=== PATIENT | male | born 1940 | race Caucasian/White ===

== ENCOUNTER 2020-08-27 15:43 | Observation (INO) | payer MEDICARE, MEDICAID ==
[~2020-08-27] VITALS: Ht 177.8 cm; Wt 86.6 kg
[~2020-08-27 15:43] MED LIST: ALDACTONE 25MG25 MG PO; ASPIR 8181 MG PO; CORDARONE 200M200 MG PO; COUMADIN3 MG PO; COZAAR50 MG PO; FLOMAX 0.4 MG0.4 MG PO; GLUCOPHAGE 500500 MG PO; IBUPROFEN800 MG PO; ISORDIL TAB 3030 MG PO; K-DUR TAB 10 M10 MEQ PO; LASIX20 MG PO; LEVEMIR FL100 UNIT/1 SQ; LIPITOR TAB 2020 MG PO; MELADOX3 MG PO; TESSALON PERLE100 MG PO; TOPROL XL25 MG PO; VENTOLIN HFA 66.7 GM INH; WARFARIN SODIU7.5 MG PO
[2020-08-27 17:55] LABS: HEMOGLOBIN 12.6 gm/dl (14.0-17.5); RED BLOOD COUNT 4.31 M/UL (4.20-5.50); WHITE BLOOD COUNT 8.8 K/UL (4.5-11.0)
[2020-08-27 18:19] LABS: BUN/CREATININE RATIO 17 (0-10)
[2020-08-28] MEDS ORDERED: METFORMIN HCL1000 MG PO (01:37)
[2020-08-28] MEDS ORDERED: PROTONIX 40 MG40 M1 PO (01:40)
[2020-08-28 06:11] LABS: HEMOGLOBIN 11.8 gm/dl (14.0-17.5); RED BLOOD COUNT 4.12 M/UL (4.20-5.50)
[2020-08-28 06:12] LABS: WHITE BLOOD COUNT 6.4 K/UL (4.5-11.0)
--- NOTE | 2020-08-28 13:15 | NUR ---
PT REPORTED THAT HE CANNOT TAKE INSULIN AND THAT HIS PCP, DR. MCNAIR STOPPED HIS INSULIN ABOUT 2 WEEKS AGO BECAUSE HE BROKE OUT AND DR. MCNAIR EXPLAINED IT WAS SOME TYPE OF ALLERGIC REACTION. PT REFUSED LUNCH TIME INSULIN AND STATED THAT HE TAKES METFORMIN 1000MG BID AT HOME. SPOKE WITH DR. CARTER, AND DR. CARTER EXPLAINED THAT METFORMIN IS NOT GIVEN IN THE HOSPITAL DUE TO THE COMPLICATIONS IT CAN CAUSE. DR. CARTER EXPLAINED THAT THE PT SHOULD MONITOR HIS DIABETES WITH DIET MODIFICATIONS AND REPORT TO DR. CARTER IF THE PT'S SUGAR IS ELEVATED. WILL CONTINUE TO MONITOR THE PT.
[2020-08-29 04:48] LABS: HEMOGLOBIN 12.4 gm/dl (14.0-17.5); RED BLOOD COUNT 4.25 M/UL (4.20-5.50); WHITE BLOOD COUNT 6.5 K/UL (4.5-11.0)
[2020-08-29] MEDS ORDERED: KEFLEX CAP 250250 MG PO (09:56)
== END 2020-08-29 15:52 | disposition home or self-care (01) ==
LOC: ER1 15:43 → M/S 21:42 → CDU 21:42 → M/S 23:45
PROVIDERS: Emergency Medicine; Physician Assistant Medical; ADMIT Internal Medicine
DX: L03.114 Cellulitis of left upper limb (principal); R42 Dizziness and giddiness; R55 Syncope and collapse; I13.0 Hypertensive heart and chronic kidney disease with heart failure and stage 1 through stage 4 chronic kidney disease, or unspecified chronic kidney disease; J44.9 Chronic obstructive pulmonary disease, unspecified; E11.22 Type 2 diabetes mellitus with diabetic chronic kidney disease; M79.662 Pain in left lower leg; E78.5 Hyperlipidemia, unspecified; N18.30 Chronic kidney disease, stage 3 unspecified; I25.10 Atherosclerotic heart disease of native coronary artery without angina pectoris; J60 Coalworker's pneumoconiosis; I25.5 Ischemic cardiomyopathy; Z88.8 Allergy status to other drugs, medicaments and biological substances; I48.20 Chronic atrial fibrillation, unspecified; Z95.810 Presence of automatic (implantable) cardiac defibrillator; Z95.5 Presence of coronary angioplasty implant and graft; Z79.01 Long term (current) use of anticoagulants; Z20.822 Contact with and (suspected) exposure to COVID-19; I08.3 Combined rheumatic disorders of mitral, aortic and tricuspid valves; I27.20 Pulmonary hypertension, unspecified; I50.9 Heart failure, unspecified
CPT/HCPCS: ECHO; 36415; 70450; 71045; 71046; 80048; 80053; 80202; 82550; 82553; 82962; 83605; 83874; 84484; 85025; 85027; 85610; 87040; 93005; 93306; 93926; 93971; 94640; 94664; 94760; 96365; 96375; 96376; 99285; G0378; J0690; J2543; J3370; J7030; J7070; U0002

== ENCOUNTER → 2020-09-06 | Outpatient (CLI) | payer MEDICARE ==
[~2020-09-06] MED LIST changes: +KEFLEX CAP 250250 MG PO; +METFORMIN HCL1000 MG PO; +PROTONIX 40 MG40 M1 PO
== END ==
LOC: RT 15:15
DX: J44.9 Chronic obstructive pulmonary disease, unspecified (principal)
CPT/HCPCS: 36600; 82803

== ENCOUNTER 2021-01-27 23:24 | Inpatient (IN) | payer MEDICARE, OTHER ==
[~2021-01-27] VITALS: Ht 177.8 cm; Wt 80.4 kg
[~2021-01-27 23:24] MED LIST changes: -CORDARONE 200M200 MG PO; -FLOMAX 0.4 MG0.4 MG PO; -LASIX20 MG PO; -LIPITOR TAB 2020 MG PO; -METFORMIN HCL1000 MG PO; -WARFARIN SODIU7.5 MG PO
[2021-01-28 00:04] LABS: HEMOGLOBIN 12.7 gm/dl (14.0-17.5); RED BLOOD COUNT 4.17 M/UL (4.20-5.50); WHITE BLOOD COUNT 12.5 K/UL (4.5-11.0)
[2021-01-28] MEDS ORDERED: METFORMIN HCL500 M2 PO (01:37)
[2021-01-28] MEDS ORDERED: LIPITOR TAB 2020 MG PO (09:27)
[2021-01-28] MEDS ORDERED: AMIODARONE HCL200 MG PO (09:27)
[2021-01-28] MEDS ORDERED: LASIX40 MG PO (09:28)
[2021-01-28] MEDS ORDERED: FLOMAX 0.4 MG0.4 MG PO (09:33)
[2021-01-28 09:54] LABS: HEMOGLOBIN 11.7 gm/dl (14.0-17.5); RED BLOOD COUNT 3.88 M/UL (4.20-5.50); WHITE BLOOD COUNT 10.8 K/UL (4.5-11.0)
[2021-01-28] MEDS ORDERED: SPIRONOLACTONE25 MG PO (10:58)
[2021-01-28] MEDS ORDERED: VITAMIN B-1100 M1 PO (10:58)
[2021-01-28] MEDS ORDERED: WARFARIN SODIUM5 MG PO (17:09)
[2021-01-29 07:52] LABS: HEMOGLOBIN 10.9 gm/dl (14.0-17.5); RED BLOOD COUNT 3.69 M/UL (4.20-5.50); WHITE BLOOD COUNT 9.8 K/UL (4.5-11.0)
[2021-01-29] MEDS ORDERED: LEVOFLOXACIN500 MG PO (16:17)
[2021-01-29] MEDS ORDERED: MEDROL4 MG PO (16:17)
[2021-01-30 06:47] LABS: HEMOGLOBIN 10.6 gm/dl (14.0-17.5); RED BLOOD COUNT 3.51 M/UL (4.20-5.50); WHITE BLOOD COUNT 11.8 K/UL (4.5-11.0)
[2021-01-31 06:59] LABS: HEMOGLOBIN 10.8 gm/dl (14.0-17.5); RED BLOOD COUNT 3.55 M/UL (4.20-5.50); WHITE BLOOD COUNT 9.2 K/UL (4.5-11.0)
[2021-01-31] MEDS ORDERED: CEFUROXIME500 MG PO (10:29)
[2021-01-31 17:08] LABS: ORGANISM ID Not indicated. (.); SPECIMEN SOURCE Urine (.); STREPTOCOCCUS PNEUMONIAE AG Negative (Negative)
== END 2021-01-31 13:14 | disposition home or self-care (01) | DRG 193 ==
LOC: ER1 23:24 → M/S 01-28 02:38 → CDU 01-28 02:38 → M/S 01-28 04:44
PROVIDERS: Internal Medicine; Internal Medicine Nephrology; Physician Assistant; ADMIT Internal Medicine
DX: J18.9 Pneumonia, unspecified organism (principal); Z20.822 Contact with and (suspected) exposure to COVID-19; J96.21 Acute and chronic respiratory failure with hypoxia; J96.22 Acute and chronic respiratory failure with hypercapnia; N17.9 Acute kidney failure, unspecified; I13.0 Hypertensive heart and chronic kidney disease with heart failure and stage 1 through stage 4 chronic kidney disease, or unspecified chronic kidney disease; I50.22 Chronic systolic (congestive) heart failure; I48.20 Chronic atrial fibrillation, unspecified; J44.1 Chronic obstructive pulmonary disease with (acute) exacerbation; J44.0 Chronic obstructive pulmonary disease with (acute) lower respiratory infection; N18.30 Chronic kidney disease, stage 3 unspecified; E11.22 Type 2 diabetes mellitus with diabetic chronic kidney disease; N40.0 Benign prostatic hyperplasia without lower urinary tract symptoms; I25.5 Ischemic cardiomyopathy; I25.10 Atherosclerotic heart disease of native coronary artery without angina pectoris; I27.20 Pulmonary hypertension, unspecified; E11.65 Type 2 diabetes mellitus with hyperglycemia; J44.9 Chronic obstructive pulmonary disease, unspecified; Z79.01 Long term (current) use of anticoagulants; Z95.810 Presence of automatic (implantable) cardiac defibrillator; Z88.8 Allergy status to other drugs, medicaments and biological substances; Z82.49 Family history of ischemic heart disease and other diseases of the circulatory system; Z95.1 Presence of aortocoronary bypass graft; Z90.49 Acquired absence of other specified parts of digestive tract; Z99.81 Dependence on supplemental oxygen
CPT/HCPCS: 36415; 71045; 71250; 80048; 80053; 81001; 82150; 82550; 82553; 82570; 82962; 83690; 83735; 83880; 84100; 84133; 84156; 84300; 84484; 85025; 85027; 85610; 86140; 87040; 87086; 87278; 87899; 93005; 94003; 94640; 94760; 96374; 99285; J0456; J0696; J1650; J1956; J2405; J2920; J2930; J7030; U0002

== ENCOUNTER 2021-10-14 10:38 | Emergency (ER) | payer MEDICARE ==
[~2021-10-14 10:38] MED LIST changes: +AMIODARONE HCL200 MG PO; +CEFUROXIME500 MG PO; +FLOMAX 0.4 MG0.4 MG PO; +LASIX40 MG PO; +LEVOFLOXACIN500 MG PO; +LIPITOR TAB 2020 MG PO; +MEDROL4 MG PO; +METFORMIN HCL500 M2 PO; +SPIRONOLACTONE25 MG PO; +VITAMIN B-1100 M1 PO; +WARFARIN SODIUM5 MG PO
[2021-10-14 11:01] LABS: HEMOGLOBIN 9.1 gm/dl (14.0-17.5); RED BLOOD COUNT 3.65 M/UL (4.20-5.50); WHITE BLOOD COUNT 9.1 K/UL (4.5-11.0)
== END 2021-10-14 21:50 | disposition short-term general hospital (02) ==
LOC: ER1 10:38
PROVIDERS: Emergency Medicine
DX: I47.2 Ventricular tachycardia (principal); I48.20 Chronic atrial fibrillation, unspecified; I50.22 Chronic systolic (congestive) heart failure; I25.5 Ischemic cardiomyopathy; Z95.810 Presence of automatic (implantable) cardiac defibrillator; I25.10 Atherosclerotic heart disease of native coronary artery without angina pectoris; J60 Coalworker's pneumoconiosis; I13.0 Hypertensive heart and chronic kidney disease with heart failure and stage 1 through stage 4 chronic kidney disease, or unspecified chronic kidney disease; E11.22 Type 2 diabetes mellitus with diabetic chronic kidney disease; N18.9 Chronic kidney disease, unspecified; I95.9 Hypotension, unspecified; E87.1 Hypo-osmolality and hyponatremia; D63.1 Anemia in chronic kidney disease; J44.9 Chronic obstructive pulmonary disease, unspecified; I25.2 Old myocardial infarction; Z95.1 Presence of aortocoronary bypass graft; Z79.899 Other long term (current) drug therapy; Z88.8 Allergy status to other drugs, medicaments and biological substances; Z79.01 Long term (current) use of anticoagulants; Z79.84 Long term (current) use of oral hypoglycemic drugs; Z51.81 Encounter for therapeutic drug level monitoring
CPT/HCPCS: 36600; 71045; 80053; 82436; 82550; 82553; 82803; 82962; 83605; 83880; 83935; 84133; 84300; 84484; 85025; 85610; 85730; 87040; 93005; 96374; 96375; 99285; J0696